=== PATIENT | male | born 1945 | race Caucasian/White ===

== ENCOUNTER 2022-01-11 07:54 | Inpatient (IN) | payer MEDICARE, BC ==
[~2022-01-11] VITALS: Ht 185.4 cm; Wt 120.0 kg
[2022-01-11] VITALS (247 sets, daily range): BP systolic 132–164; BP diastolic 52–130; PULSE 77–100; TEMP 98.4–99; O2SAT 92–100
[~2022-01-11 07:54] MED LIST: AVELOX400 MG PO; BYSTOLIC5 MG PO; DILAUDID 2MG TAB2 MG PO; RELPAX 40MG TAB40 MG PO; TEGRETOL200 MG PO
[2022-01-11 08:28] LABS: HEMATOCRIT 42.5 % (42.0-52.0); HEMOGLOBIN 14.5 g/dl (13.5-18.0); MEAN CELL VOLUME 91 fl (80.0-100.0); MEAN CORPUSCULAR HEMOGLOBIN 31 pg (27-31); MEAN CORPUSCULAR HGB CONC 34 g/dl (33.0-37.0); MEAN PLATELET VOLUME 10.7 fl (7.4-10.4); PLATELET COUNT 231 K/mm3 (130-400); RED BLOOD COUNT 4.67 M/mm3 (4.20-5.60); REDCELL DISTRIBUTION WIDTH-CV 13.6 % (11.5-14.5)
[2022-01-11 08:36] LABS: INR 1.2 (0.8-3.0); PROTHROMBIN TIME 13.3 SECONDS (9.7-12.8)
[2022-01-11] MEDS ORDERED: AMBIEN 5MG TABLE5 MG PO (08:46)
[2022-01-11] MEDS ORDERED: COZAAR100 MG PO (08:47)
[2022-01-11] MEDS ORDERED: HCTZ12.5TAB PO (08:47)
[2022-01-11] MEDS ORDERED: ELIQUIS 5MG PO (08:48)
[2022-01-11] MEDS ORDERED: TYLENOL 325MG325 MG PO (08:49)
[2022-01-11] MEDS ORDERED: ADVIL200 MG PO (08:50)
[2022-01-11 08:53] LABS: CALCIUM 8.8 mg/dL (8.4-10.2); CREATININE, serum 0.96 mg/dL (0.72-1.25); POTASSIUM 3.9 mmol/L (3.5-4.5)
[2022-01-11] MEDS ORDERED: TYLENOL 500MG500 MG PO (08:54)
[2022-01-12] VITALS (9 sets, daily range): BP systolic 117–147; BP diastolic 62–82; PULSE 62–73; TEMP 97.6–98.6
[2022-01-12 06:19] LABS: BASO % 0.4 % (0.0-2.0); EOS # 0.1 K/mm3 (0.0-0.7); EOS % 0.9 % (0.0-4.0); GRAN # 4.7 K/mm3 (1.4-6.5); HEMOGLOBIN 13.3 g/dl (13.5-18.0); LYMPH # 1.9 K/mm3 (1.2-3.4); LYMPH % 24.9 % (20.0-51.0); MEAN CELL VOLUME 93 fl (80.0-100.0); MEAN CORPUSCULAR HEMOGLOBIN 31 pg (27-31); MEAN CORPUSCULAR HGB CONC 33 g/dl (33.0-37.0); MEAN PLATELET VOLUME 10.8 fl (7.4-10.4); MONO # 0.9 K/mm3 (0.1-0.6); MONO % 11.3 % (1.7-9.3); PLATELET COUNT 198 K/mm3 (130-400); RED BLOOD COUNT 4.31 M/mm3 (4.20-5.60); REDCELL DISTRIBUTION WIDTH-CV 13.7 % (11.5-14.5)
[2022-01-12 06:28] LABS: INR 1.2 (0.8-3.0); PROTHROMBIN TIME 13.3 SECONDS (9.7-12.8)
[2022-01-12 06:40] LABS: CALCIUM 8.5 mg/dL (8.4-10.2); CREATININE, serum 0.87 mg/dL (0.72-1.25); MAGNESIUM 2.2 mg/dL (1.6-2.6); POTASSIUM 3.8 mmol/L (3.5-4.5)
[2022-01-13 00:21] VITALS: BP 136/70; PULSE 63; TEMP 98
[2022-01-13 04:11] VITALS: BP 133/73; PULSE 61; TEMP 98
[2022-01-13 06:33] LABS: BASO % 0.4 % (0.0-2.0); EOS # 0.1 K/mm3 (0.0-0.7); EOS % 1.2 % (0.0-4.0); GRAN # 6.1 K/mm3 (1.4-6.5); GRAN % 64.9 % (42.2-75.2); HEMATOCRIT 40.9 % (42.0-52.0); HEMOGLOBIN 13.7 g/dl (13.5-18.0); LYMPH # 2.1 K/mm3 (1.2-3.4); LYMPH % 22.3 % (20.0-51.0); MEAN CELL VOLUME 94 fl (80.0-100.0); MEAN CORPUSCULAR HEMOGLOBIN 32 pg (27-31); MEAN CORPUSCULAR HGB CONC 34 g/dl (33.0-37.0); MEAN PLATELET VOLUME 10.9 fl (7.4-10.4); MONO % 10.4 % (1.7-9.3); PLATELET COUNT 201 K/mm3 (130-400); RED BLOOD COUNT 4.35 M/mm3 (4.20-5.60); REDCELL DISTRIBUTION WIDTH-CV 13.4 % (11.5-14.5)
[2022-01-13 06:44] LABS: INR 1.2 (0.8-3.0)
[2022-01-13 07:02] LABS: CALCIUM 8.8 mg/dL (8.4-10.2); CREATININE, serum 0.85 mg/dL (0.72-1.25); MAGNESIUM 2.3 mg/dL (1.6-2.6); POTASSIUM 4.1 mmol/L (3.5-4.5)
[2022-01-13 08:42] VITALS: BP 142/75; PULSE 60; TEMP 98.5
[2022-01-13] MEDS ORDERED: COZAAR 25MG25 MG/TAB PO (09:05)
[2022-01-13] MEDS ORDERED: BETAPACE 120MG120 MG PO (09:05)
== END 2022-01-13 11:20 | disposition home or self-care (01) | DRG 310 ==
LOC: COL.RAD 07:54 → SURG 11:13 → INPTSU 11:13 → SURG 16:04
PROVIDERS: ADMIT Internal Medicine Cardiovascular Disease
PROC: 5A2204Z Restoration of Cardiac Rhythm, Single (ICD-10-PCS; principal; 2022-01-11)
PROC: B24BZZ4 Ultrasonography of Heart with Aorta, Transesophageal (ICD-10-PCS; 2022-01-11)
DX: I48.0 Paroxysmal atrial fibrillation (principal); Z23 Encounter for immunization
CPT/HCPCS: J2704